=== PATIENT | female | born 1930 | race Caucasian/White ===

== ENCOUNTER 2018-02-24 20:01 | Emergency (ER) | payer MEDICARE, OTHER ==
[2018-02-24] MEDS: ALBUTEROL 0.083% (NEB) 2.5 MG/3 ML AMP NEB (23:05)
[2018-02-24] MEDS: IPRATROPIUM (NEB) 0.5 MG/2.5 ML AMP NEB (23:05)
[2018-02-24] MEDS: DEXAMETHASONE 10 MG/ML 1 ML INJ IM (23:16)
== END 2018-02-25 00:18 | disposition home or self-care (01) ==
LOC: E/R 02-25 00:18
DX: J40 Bronchitis, not specified as acute or chronic (principal)
CPT/HCPCS: 71045; 94664; 96372; 99284-25

== ENCOUNTER 2018-04-06 12:35 | Inpatient (IN) | payer MEDICARE, OTHER ==
[2018-04-06 12:58] LABS: ADD MAN DIFF? NO
[2018-04-06 13:03] LABS: BASOPHIL # 0.1 10^3/ul (0.0-0.1); BASOPHILS % 0.6 % (0.0-2.0); EOSINOPHILS # 0.2 10^3/ul (0.0-0.5); EOSINOPHILS % 1.7 % (0.0-7.0); HEMATOCRIT 46.3 % (37.0-47.0); HEMOGLOBIN 15.7 g/dl (12.0-16.0); LYMPHOCYTES # 1.3 10^3/ul (0.8-2.9); LYMPHOCYTES % 11.3 % (15.0-51.0); MEAN CORPUSCULAR HEMOGLOBIN 33.1 pg (29.0-33.0); MEAN CORPUSCULAR HGB CONC 33.9 g/dl (32.0-37.0); MEAN CORPUSCULAR VOLUME 97.7 fl (82.0-101.0); MEAN PLATELET VOLUME 11.3 fl (7.4-10.4); MONOCYTE # 0.6 10^3/ul (0.3-0.9); MONOCYTES % 5.3 % (0.0-11.0); NEUTROPHIL # 9.3 10^3/ul (1.6-7.5); NEUTROPHILS % 80.9 % (39.0-77.0); PLATELET COUNT 131 10^3/UL (140-415); RED BLOOD COUNT 4.74 10^6/ul (4.20-5.40); RED CELL DISTRIBUTION WIDTH 12.7 % (11.5-14.5)
[2018-04-06 13:03] LABS: WHITE BLOOD COUNT 11.5 10^3/ul (4.8-10.8)
[2018-04-06] MEDS: METHYLPREDNISOLONE 125 MG INJ IV ×2 (13:18→23:34)
[2018-04-06] MEDS: SODIUM CHLORIDE 0.9% 1L BAG IV* (13:18)
[2018-04-06 13:20] LABS: ANION GAP 13 (8-16); BLOOD UREA NITROGEN 13 mg/dl (7-20); CALCIUM 8.9 mg/dl (8.4-10.2); CARBON DIOXIDE 26 mmol/L (21-31); CHLORIDE 106 mmol/L (97-110); CREATININE 0.49 mg/dl (0.44-1.00); GLUCOSE 113 mg/dl (70-220); INR 0.95; POTASSIUM 4.3 mmol/L (3.5-5.1); PROTIME 12.8 Sec (11.9-14.9); SODIUM 141 mmol/L (135-144)
[2018-04-06 13:21] LABS: PARTIAL THROMBOPLASTIN TIME 30.2 Sec (23.0-35.0)
[2018-04-06 13:21] LABS: LACTIC ACID 1.9 mmol/L (0.5-2.0)
[2018-04-06 13:30] LABS: TROPONIN-I 0.014 ng/ml (0.000-0.120)
[2018-04-06] MEDS: IPRATROPIUM (NEB) 0.5 MG/2.5 ML AMP INH (13:43)
[2018-04-06] MEDS: LEVALBUTEROL (NEB) 1.25 MG/0.5 ML AMP INH (13:43)
[2018-04-06] MEDS: LEVOFLOXACIN 750MG/D5W (PMX) 150 ML IVPB (14:23)
[2018-04-06] MEDS ORDERED: ACETAMINOPHEN 325 MG TAB PO (14:30)
[2018-04-06] MEDS ORDERED: ALBUTEROL/IPRATROPIUM (NEB) 3 ML AMP HHN (14:30)
[2018-04-06] MEDS ORDERED: NACL 0.9% 3 ML SYG IV (14:30)
[2018-04-06] MEDS ORDERED: ONDANSETRON 4 MG INJ IV (14:30)
[2018-04-06 16:07] LABS: ADD UMIC YES; UR ASCORBIC ACID NEGATIVE (NEGATIVE); UR BILIRUBIN (Dip) NEGATIVE (NEGATIVE); UR BLOOD (Dip) 2+ mg/dL (NEGATIVE); UR CLARITY CLEAR (CLEAR); UR COLOR YELLOW (YELLOW); UR GLUCOSE (Dip) NEGATIVE (NEGATIVE); UR KETONES (Dip) NEGATIVE (NEGATIVE); UR LEUKOCYTE ESTERASE (Dip) NEGATIVE Leu/ul (NEGATIVE); UR MUCUS MODERATE /HPF (NONE SEEN); UR NITRITE (Dip) NEGATIVE (NEGATIVE); UR RBC 7 /HPF (0-5); UR SPECIFIC GRAVITY (Dip) 1.009 (1.003-1.030); UR TOTAL PROTEIN (Dip) NEGATIVE (NEGATIVE); UR UROBILINOGEN (Dip) NEGATIVE (NEGATIVE); UR WBC 0 /HPF (0-5)
[2018-04-06] MEDS ORDERED: METHYLPREDNISOLONE 125 MG INJ IV (18:00)
[2018-04-06] MEDS: BUDESONIDE (NEB) 0.5MG/2ML AMP HHN (20:57)
[2018-04-06] MEDS: ALBUTEROL/IPRATROPIUM (NEB) 3 ML AMP HHN (21:07)
[2018-04-07 05:34] LABS: ADD MAN DIFF? NO
[2018-04-07 05:43] LABS: WHITE BLOOD COUNT 9.6 10^3/ul (4.8-10.8)
[2018-04-07 05:43] LABS: BASOPHILS % 0.1 % (0.0-2.0); HEMATOCRIT 42.4 % (37.0-47.0); HEMOGLOBIN 14.6 g/dl (12.0-16.0); LYMPHOCYTES # 0.8 10^3/ul (0.8-2.9); LYMPHOCYTES % 8.3 % (15.0-51.0); MEAN CORPUSCULAR HEMOGLOBIN 33.6 pg (29.0-33.0); MEAN CORPUSCULAR HGB CONC 34.4 g/dl (32.0-37.0); MEAN CORPUSCULAR VOLUME 97.7 fl (82.0-101.0); MEAN PLATELET VOLUME 11.7 fl (7.4-10.4); MONOCYTE # 0.1 10^3/ul (0.3-0.9); MONOCYTES % 0.5 % (0.0-11.0); NEUTROPHIL # 8.7 10^3/ul (1.6-7.5); NEUTROPHILS % 90.7 % (39.0-77.0); PLATELET COUNT 127 10^3/UL (140-415); RED BLOOD COUNT 4.34 10^6/ul (4.20-5.40)
[2018-04-07 06:03] LABS: ALANINE AMINOTRANSFERASE 17 IU/L (13-69); ALBUMIN 3.4 g/dl (3.3-4.9); ALBUMIN/GLOBULIN RATIO 1.06; ALKALINE PHOSPHATASE 88 IU/L (42-121); ANION GAP 11 (8-16); ASPARTATE AMINO TRANSFERASE 28 IU/L (15-46); BILIRUBIN,INDIRECT 1.1 mg/dl (0-1.1); BILIRUBIN,TOTAL 1.1 mg/dl (0.2-1.3); BLOOD UREA NITROGEN 16 mg/dl (7-20); CALCIUM 8.9 mg/dl (8.4-10.2); CARBON DIOXIDE 28 mmol/L (21-31); CHLORIDE 105 mmol/L (97-110); CREATININE 0.54 mg/dl (0.44-1.00); GLUCOSE 165 mg/dl (70-220); MAGNESIUM 2.1 mg/dl (1.7-2.5); POTASSIUM 4.1 mmol/L (3.5-5.1); SODIUM 140 mmol/L (135-144); TOTAL PROTEIN 6.6 g/dl (6.1-8.1)
[2018-04-07] MEDS: HYDROCODONE/APAP (5/325) TAB PO (07:36)
[2018-04-07] MEDS: ALBUTEROL/IPRATROPIUM (NEB) 3 ML AMP HHN ×3 (08:22→19:47)
[2018-04-07] MEDS: BUDESONIDE (NEB) 0.5MG/2ML AMP HHN ×2 (08:27→20:00)
[2018-04-07] MEDS: METHYLPREDNISOLONE 125 MG INJ IV (09:03)
[2018-04-07] MEDS: METHOCARBAMOL 500 MG TAB PO ×2 (14:22→21:09)
[2018-04-07] MEDS: LEVOFLOXACIN 500MG/D5W (PMX) 100 ML IVPB (15:10)
[2018-04-07] MEDS: METHYLPREDNISOLONE 40 MG INJ IV (21:09)
[2018-04-08] MEDS ORDERED: VANCOMYCIN IV PER PHARMACY XX (01:00)
[2018-04-08] MEDS: VANCOMYCIN 1.5 GM in SOD CHLORIDE 0.9% 250 ML IVPB (01:06)
[2018-04-08 05:36] LABS: ADD MAN DIFF? NO
[2018-04-08 05:40] LABS: BASOPHILS % 0.1 % (0.0-2.0); HEMATOCRIT 41.6 % (37.0-47.0); HEMOGLOBIN 13.8 g/dl (12.0-16.0); LYMPHOCYTES # 0.7 10^3/ul (0.8-2.9); LYMPHOCYTES % 4.3 % (15.0-51.0); MEAN CORPUSCULAR HEMOGLOBIN 33.2 pg (29.0-33.0); MEAN CORPUSCULAR HGB CONC 33.2 g/dl (32.0-37.0); MEAN PLATELET VOLUME 11.7 fl (7.4-10.4); MONOCYTE # 0.3 10^3/ul (0.3-0.9); NEUTROPHILS % 92.8 % (39.0-77.0); PLATELET COUNT 128 10^3/UL (140-415); RED BLOOD COUNT 4.16 10^6/ul (4.20-5.40); RED CELL DISTRIBUTION WIDTH 13.2 % (11.5-14.5)
[2018-04-08 05:40] LABS: WHITE BLOOD COUNT 16.1 10^3/ul (4.8-10.8)
[2018-04-08 06:04] LABS: ANION GAP 13 (8-16); BLOOD UREA NITROGEN 24 mg/dl (7-20); CALCIUM 9.1 mg/dl (8.4-10.2); CARBON DIOXIDE 27 mmol/L (21-31); CHLORIDE 104 mmol/L (97-110); CREATININE 0.66 mg/dl (0.44-1.00); GLUCOSE 178 mg/dl (70-220); MAGNESIUM 2.4 mg/dl (1.7-2.5); PHOSPHORUS 2.8 mg/dl (2.5-4.9); POTASSIUM 4.6 mmol/L (3.5-5.1); SODIUM 139 mmol/L (135-144)
[2018-04-08] MEDS: METHYLPREDNISOLONE 40 MG INJ IV ×2 (08:47→20:29)
[2018-04-08] MEDS: METHOCARBAMOL 500 MG TAB PO ×3 (08:48→20:29)
[2018-04-08] MEDS: BUDESONIDE (NEB) 0.5MG/2ML AMP HHN ×3 (08:53→21:55)
[2018-04-08] MEDS: ALBUTEROL/IPRATROPIUM (NEB) 3 ML AMP HHN ×2 (08:53→13:23)
[2018-04-08] MEDS: ASCORBIC ACID 500 MG TAB PO (13:52)
[2018-04-08] MEDS: GUAIFENESIN/DM (SR) TAB PO (13:52)
[2018-04-08] MEDS: PANTOPRAZOLE (EC) 40 MG TAB PO (13:52)
[2018-04-08] MEDS: ENOXAPARIN 30 MG/0.3 ML SYG SC (15:43)
[2018-04-08 15:57] LABS: CREATINE KINASE 189 IU/L (23-200)
[2018-04-08] MEDS: LEVALBUTEROL (NEB) 1.25 MG/0.5 ML AMP HHN ×2 (16:03→20:40)
[2018-04-08] MEDS: IPRATROPIUM (NEB) 0.5 MG/2.5 ML AMP HHN ×2 (16:04→20:40)
[2018-04-08 16:09] LABS: CK-MB 5.76 ng/ml (0.0-2.4); TROPONIN-I < 0.012 ng/ml (0.000-0.120)
[2018-04-08] MEDS: MONTELUKAST 10 MG TAB PO (20:29)
[2018-04-08 21:15] LABS: CREATINE KINASE 158 IU/L (23-200)
[2018-04-08 21:27] LABS: CK INDEX 3.3; CK-MB 5.19 ng/ml (0.0-2.4); TROPONIN-I < 0.012 ng/ml (0.000-0.120)
[2018-04-09] MEDS: LEVALBUTEROL (NEB) 1.25 MG/0.5 ML AMP HHN ×6 (00:48→21:14)
[2018-04-09] MEDS: VANCOMYCIN 1.25 GM in SOD CHLORIDE 0.9% 250 ML IVPB (01:15)
[2018-04-09 03:22] LABS: CREATINE KINASE 99 IU/L (23-200)
[2018-04-09 03:35] LABS: CK-MB 3.98 ng/ml (0.0-2.4); TROPONIN-I < 0.012 ng/ml (0.000-0.120)
[2018-04-09] MEDS: PANTOPRAZOLE (EC) 40 MG TAB PO (05:14)
[2018-04-09] MEDS: BUDESONIDE (NEB) 0.5MG/2ML AMP HHN ×2 (08:12→21:14)
[2018-04-09] MEDS: IPRATROPIUM (NEB) 0.5 MG/2.5 ML AMP HHN ×4 (08:12→21:14)
[2018-04-09] MEDS: METHOCARBAMOL 500 MG TAB PO ×3 (09:13→20:51)
[2018-04-09] MEDS: METHYLPREDNISOLONE 40 MG INJ IV ×2 (09:13→20:51)
[2018-04-09] MEDS: GUAIFENESIN/DM (SR) TAB PO (09:13)
[2018-04-09] MEDS: ASCORBIC ACID 500 MG TAB PO (09:19)
[2018-04-09] MEDS: ENOXAPARIN 30 MG/0.3 ML SYG SC (09:25)
[2018-04-09 13:45] LABS: AADO2 Arterial 38.6 mmHg (7.0-24.0); Allen Test ACCEPTAB; Arterial Base Excess 0.4 mmol/L (-3.0-3); Arterial Blood Gas Oxygen Sat 91.5 mmHG (95.0-100.0); Arterial COHb 0.4 % (0.0-3.0); Arterial Fraction of Oxyhgb 90.9 % (93.0-99.0); Arterial HCO3 25.6 mmol/L (22.0-26.0); Arterial MetHb 0.3 % (0.0-1.5); Arterial Total Hemglobin 15.4 g/dl (12.0-18.0); Arterial pCO2 43.5 mmhg (35-45); MODE ROOM AIR; Site Left Radial
[2018-04-09 15:01] LABS: CHOL/HDL RATIO 3.4 RATIO; HDL CHOLESTEROL 46 mg/dl (33-92); LDL CHOLESTEROL,CALCULATED 88 mg/dl; TRIGLYCERIDES 116 mg/dl (0-149)
[2018-04-09 15:01] LABS: CHOLESTEROL 157 mg/dl (100-200)
[2018-04-09] MEDS: GUAIFENESIN/DM 5ML CUP PO ×2 (17:41→23:07)
[2018-04-09] MEDS: MONTELUKAST 10 MG TAB PO (20:51)
[2018-04-10] MEDS: LEVALBUTEROL (NEB) 1.25 MG/0.5 ML AMP HHN ×6 (01:33→21:06)
[2018-04-10] MEDS: PANTOPRAZOLE (EC) 40 MG TAB PO (05:49)
[2018-04-10] MEDS: LEVOFLOXACIN 500 MG TAB PO (05:49)
[2018-04-10] MEDS: METHOCARBAMOL 500 MG TAB PO ×3 (08:05→20:30)
[2018-04-10] MEDS: METHYLPREDNISOLONE 40 MG INJ IV ×2 (08:05→20:30)
[2018-04-10] MEDS: GUAIFENESIN/DM (SR) TAB PO (08:05)
[2018-04-10] MEDS: ASCORBIC ACID 500 MG TAB PO (08:05)
[2018-04-10] MEDS: ENOXAPARIN 30 MG/0.3 ML SYG SC (08:06)
[2018-04-10] MEDS: IPRATROPIUM (NEB) 0.5 MG/2.5 ML AMP HHN ×4 (08:37→21:06)
[2018-04-10] MEDS: BUDESONIDE (NEB) 0.5MG/2ML AMP HHN ×2 (08:37→21:05)
[2018-04-10] MEDS: NIFEdipine (XL) 60 MG TAB PO (11:05)
[2018-04-10] MEDS: GUAIFENESIN/DM 5ML CUP PO (14:04)
[2018-04-10] MEDS: MONTELUKAST 10 MG TAB PO (20:30)
[2018-04-11] MEDS: IPRATROPIUM (NEB) 0.5 MG/2.5 ML AMP HHN ×5 (01:37→20:03)
[2018-04-11] MEDS: LEVALBUTEROL (NEB) 1.25 MG/0.5 ML AMP HHN ×6 (01:38→20:02)
[2018-04-11] MEDS: LEVOFLOXACIN 500 MG TAB PO (05:58)
[2018-04-11] MEDS: PANTOPRAZOLE (EC) 40 MG TAB PO (05:58)
[2018-04-11] MEDS: METHOCARBAMOL 500 MG TAB PO ×3 (08:18→20:16)
[2018-04-11] MEDS: GUAIFENESIN/DM (SR) TAB PO (08:19)
[2018-04-11] MEDS: NIFEdipine (XL) 60 MG TAB PO (08:19)
[2018-04-11] MEDS: predniSONE 20 MG TAB PO (08:19)
[2018-04-11] MEDS: ASCORBIC ACID 500 MG TAB PO (08:19)
[2018-04-11] MEDS: ENOXAPARIN 30 MG/0.3 ML SYG SC (08:30)
[2018-04-11] MEDS: BUDESONIDE (NEB) 0.5MG/2ML AMP HHN ×2 (09:24→20:00)
[2018-04-11 14:03] LABS: ALBUMIN 3.2 g/dl (3.3-4.9); ANION GAP 12 (8-16); BLOOD UREA NITROGEN 18 mg/dl (7-20); CALCIUM 8.8 mg/dl (8.4-10.2); CARBON DIOXIDE 27 mmol/L (21-31); CHLORIDE 99 mmol/L (97-110); CREATININE 0.64 mg/dl (0.44-1.00); GLUCOSE 178 mg/dl (70-220); PHOSPHORUS 2.7 mg/dl (2.5-4.9); POTASSIUM 3.3 mmol/L (3.5-5.1); SODIUM 135 mmol/L (135-144)
[2018-04-11] MEDS: DOCUSATE SODIUM 100 MG CAP PO ×2 (14:28→20:18)
[2018-04-11] MEDS: SOD CHLORIDE 0.9% 1,000 ML IV (14:28)
[2018-04-11] MEDS: IOHEXOL 100 ML (16:17)
[2018-04-11] MEDS: SOD CHLORIDE 0.9% 100 ML (16:17)
[2018-04-11] MEDS: POTASSIUM CHLORIDE 20 MEQ POWDER FOR ORAL SOLN PO (17:14)
[2018-04-11] MEDS: LATANOPROST 0.005% 2.5 ML OPH BOTH EYES (20:16)
[2018-04-11] MEDS: MONTELUKAST 10 MG TAB PO (20:17)
[2018-04-11] MEDS: HYDROCODONE/APAP (5/325) TAB PO (20:17)
[2018-04-11] MEDS: CARBOXYMETHYLCELLULOSE 0.5% 0.4 ML OPH BOTH EYES (21:00)
[2018-04-12] MEDS: LEVALBUTEROL (NEB) 1.25 MG/0.5 ML AMP HHN ×6 (00:27→21:47)
[2018-04-12] MEDS: IPRATROPIUM (NEB) 0.5 MG/2.5 ML AMP HHN ×5 (04:30→21:47)
[2018-04-12 05:59] LABS: ADD MAN DIFF? NO
[2018-04-12] MEDS: LEVOFLOXACIN 500 MG TAB PO (06:01)
[2018-04-12] MEDS: PANTOPRAZOLE (EC) 40 MG TAB PO (06:01)
[2018-04-12 06:17] LABS: BASOPHILS % 0.1 % (0.0-2.0); HEMATOCRIT 41.6 % (37.0-47.0); HEMOGLOBIN 14.2 g/dl (12.0-16.0); LYMPHOCYTES # 0.7 10^3/ul (0.8-2.9); LYMPHOCYTES % 7.6 % (15.0-51.0); MEAN CORPUSCULAR HEMOGLOBIN 33.4 pg (29.0-33.0); MEAN CORPUSCULAR HGB CONC 34.1 g/dl (32.0-37.0); MEAN CORPUSCULAR VOLUME 97.9 fl (82.0-101.0); MEAN PLATELET VOLUME 11.3 fl (7.4-10.4); MONOCYTE # 0.7 10^3/ul (0.3-0.9); NEUTROPHIL # 7.8 10^3/ul (1.6-7.5); PLATELET COUNT 144 10^3/UL (140-415); RED BLOOD COUNT 4.25 10^6/ul (4.20-5.40); RED CELL DISTRIBUTION WIDTH 13.3 % (11.5-14.5)
[2018-04-12 06:17] LABS: WHITE BLOOD COUNT 9.3 10^3/ul (4.8-10.8)
[2018-04-12 06:44] LABS: ANION GAP 8 (8-16); BLOOD UREA NITROGEN 17 mg/dl (7-20); CALCIUM 8.4 mg/dl (8.4-10.2); CARBON DIOXIDE 30 mmol/L (21-31); CHLORIDE 104 mmol/L (97-110); CREATININE 0.55 mg/dl (0.44-1.00); GLUCOSE 145 mg/dl (70-220); MAGNESIUM 2.4 mg/dl (1.7-2.5); POTASSIUM 3.8 mmol/L (3.5-5.1); SODIUM 138 mmol/L (135-144)
[2018-04-12] MEDS: METHOCARBAMOL 500 MG TAB PO ×3 (08:29→20:09)
[2018-04-12] MEDS: GUAIFENESIN/DM (SR) TAB PO (08:29)
[2018-04-12] MEDS: NIFEdipine (XL) 60 MG TAB PO (08:29)
[2018-04-12] MEDS: predniSONE 20 MG TAB PO (08:30)
[2018-04-12] MEDS: DOCUSATE SODIUM 100 MG CAP PO ×2 (08:30→20:09)
[2018-04-12] MEDS: ASCORBIC ACID 500 MG TAB PO (08:30)
[2018-04-12] MEDS: ENOXAPARIN 30 MG/0.3 ML SYG SC (08:31)
[2018-04-12] MEDS: BUDESONIDE (NEB) 0.5MG/2ML AMP HHN ×2 (09:53→21:47)
[2018-04-12] MEDS: CARBOXYMETHYLCELLULOSE 0.5% 0.4 ML OPH BOTH EYES ×3 (10:00→20:09)
[2018-04-12] MEDS: predniSONE 10 MG TAB PO (10:02)
[2018-04-12] MEDS: MONTELUKAST 10 MG TAB PO (20:09)
[2018-04-12] MEDS: LATANOPROST 0.005% 2.5 ML OPH BOTH EYES (20:09)
[2018-04-12] MEDS ORDERED: VITAMIN A & D 5 GM OINT PACKET TOP (22:24)
[2018-04-12] MEDS: GUAIFENESIN/DM 5ML CUP PO (22:26)
[2018-04-13] MEDS: LEVALBUTEROL (NEB) 1.25 MG/0.5 ML AMP HHN ×5 (01:30→16:35)
[2018-04-13] MEDS: PANTOPRAZOLE (EC) 40 MG TAB PO (05:13)
[2018-04-13] MEDS: LEVOFLOXACIN 500 MG TAB PO (05:13)
[2018-04-13 05:50] LABS: ADD MAN DIFF? NO
[2018-04-13 05:53] LABS: BASOPHIL # 0.1 10^3/ul (0.0-0.1); BASOPHILS % 0.5 % (0.0-2.0); EOSINOPHILS % 0.4 % (0.0-7.0); HEMATOCRIT 43.7 % (37.0-47.0); HEMOGLOBIN 14.9 g/dl (12.0-16.0); LYMPHOCYTES # 1.5 10^3/ul (0.8-2.9); LYMPHOCYTES % 14.3 % (15.0-51.0); MEAN CORPUSCULAR HEMOGLOBIN 33.5 pg (29.0-33.0); MEAN CORPUSCULAR HGB CONC 34.1 g/dl (32.0-37.0); MEAN CORPUSCULAR VOLUME 98.2 fl (82.0-101.0); MEAN PLATELET VOLUME 10.9 fl (7.4-10.4); MONOCYTE # 0.9 10^3/ul (0.3-0.9); MONOCYTES % 8.3 % (0.0-11.0); NEUTROPHIL # 7.9 10^3/ul (1.6-7.5); NEUTROPHILS % 74.3 % (39.0-77.0); PLATELET COUNT 143 10^3/UL (140-415); RED BLOOD COUNT 4.45 10^6/ul (4.20-5.40); RED CELL DISTRIBUTION WIDTH 13.1 % (11.5-14.5)
[2018-04-13 05:53] LABS: WHITE BLOOD COUNT 10.7 10^3/ul (4.8-10.8)
[2018-04-13 06:42] LABS: ANION GAP 10 (8-16); BLOOD UREA NITROGEN 14 mg/dl (7-20); CALCIUM 8.5 mg/dl (8.4-10.2); CARBON DIOXIDE 31 mmol/L (21-31); CHLORIDE 99 mmol/L (97-110); CREATININE 0.59 mg/dl (0.44-1.00); GLUCOSE 147 mg/dl (70-220); MAGNESIUM 2.2 mg/dl (1.7-2.5); PHOSPHORUS 2.5 mg/dl (2.5-4.9); POTASSIUM 3.2 mmol/L (3.5-5.1); SODIUM 137 mmol/L (135-144)
[2018-04-13] MEDS: IPRATROPIUM (NEB) 0.5 MG/2.5 ML AMP HHN ×3 (07:07→16:35)
[2018-04-13] MEDS: BUDESONIDE (NEB) 0.5MG/2ML AMP HHN (07:07)
[2018-04-13] MEDS: DOCUSATE SODIUM 100 MG CAP PO (08:18)
[2018-04-13] MEDS: predniSONE 10 MG TAB PO (08:18)
[2018-04-13] MEDS: NIFEdipine (XL) 60 MG TAB PO (08:18)
[2018-04-13] MEDS: ASCORBIC ACID 500 MG TAB PO (08:18)
[2018-04-13] MEDS: ENOXAPARIN 30 MG/0.3 ML SYG SC (08:19)
[2018-04-13] MEDS: GUAIFENESIN/DM (SR) TAB PO (09:00)
[2018-04-13] MEDS: CARBOXYMETHYLCELLULOSE 0.5% 0.4 ML OPH BOTH EYES ×2 (09:00→13:59)
[2018-04-13] MEDS: METHOCARBAMOL 500 MG TAB PO ×2 (09:00→13:00)
[2018-04-13] MEDS: LACTULOSE 30ML CUP PO (09:27)
[2018-04-13] MEDS: NA PHOSPHATE/BIPHOS 133 ML ENEMA PR (09:47)
[2018-04-13] MEDS: MAGNESIUM HYDROXIDE 30ML CUP PO (09:47)
[2018-04-14] MEDS ORDERED: MAGNESIUM HYDROXIDE 30ML CUP PO (09:00)
== END 2018-04-13 18:21 | disposition home health service (06) | DRG 202 ==
LOC: E/R 12:35 → 6WM 14:13
DX: J45.901 Unspecified asthma with (acute) exacerbation (principal); J18.9 Pneumonia, unspecified organism; J96.01 Acute respiratory failure with hypoxia; R78.81 Bacteremia; I27.20 Pulmonary hypertension, unspecified; D69.6 Thrombocytopenia, unspecified; J20.9 Acute bronchitis, unspecified; H40.9 Unspecified glaucoma; K44.9 Diaphragmatic hernia without obstruction or gangrene; G58.8 Other specified mononeuropathies; E66.9 Obesity, unspecified; Z68.34 Body mass index [BMI] 34.0-34.9, adult; Z90.49 Acquired absence of other specified parts of digestive tract
CPT/HCPCS: 36415; 36600; 71045; 71275; 80048; 80053; 80061; 80069; 81001; 82550; 82553; 82803; 83036; 83605; 83735; 84100; 84484; 85025; 85610; 85730; 87040; 87086; 87400; 90686; 93005; 93306; 94640; 94644; 94664; 96374; 97161; 99217; 99291-25; G0378